=== PATIENT | female | born 2005 | race Two or more races ===

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

== ENCOUNTER 2024-03-17 12:17 | Emergency (ER) | payer MEDICAID ==
[~2024-03-17] VITALS: Ht 139.7 cm; Wt 66.0 kg
[2024-03-17 13:11] VITALS: BP 142/85; PULSE 84; RESP 16; TEMP 99.2; O2SAT 96
[2024-03-17] MEDS ORDERED: NAPR-746 PO (13:26)
[2024-03-17] MEDS: IBUPROFEN 600 MG TAB PO ONE (13:29)
[2024-03-17] MEDS: TETANUS-DIPTH-ACEL PERTUSSIS 0.5ML SYR Tdap IM ONE (13:29)
== END 2024-03-17 13:37 | disposition home or self-care (01) ==
LOC: ER 12:19
DX: S91.331A Puncture wound without foreign body, right foot, initial encounter (principal); W22.8XXA Striking against or struck by other objects, initial encounter; Y93.89 Activity, other specified; Y92.89 Other specified places as the place of occurrence of the external cause; Y99.8 Other external cause status
CPT/HCPCS: 90471; 90715